=== PATIENT | female | born 1975 | race Caucasian/White ===

== ENCOUNTER 2020-09-04 17:52 | Observation (INO) ==
[2020-09-04 18:42] LABS: Basophils % 0.6 % (0.0-0.8); Eosinophils % 0.4 % (0.00-10.9); Hemoglobin 11.8 GM/DL (12.0-16.0); Immature Granulocytes % 0.6 %; Immature Granulocytes Absolute 0.03 #; Lymphocytes # 1.6 10*3/uL (1.4-4.0); Mean Corpuscular HGB Conc 33.7 GM/DL (32-36); Mean Corpuscular Volume 93.3 FL (87-102); Mean Platelet Volume 9.2 FL (9.6-12.0); Monocytes % 12.4 % (1.7-12.7); Platelet Count 215 T/CUMM (130-400); Red Blood Count 3.75 MC/CUMM (3.8-5.5); Red Cell Distribution Width 12.5 % (9.3-17.3); White Blood Count 4.8 T/CUMM (4-12)
[2020-09-04] MEDS ORDERED: ALUM/MAG/SIMETH/LIDO VISC 1:1 30 ML BOTTLE PO STA (18:48)
[2020-09-04] MEDS ORDERED: NITROGLYCERIN 2% OINT 1 INCH/GM PACK TOP STA (18:48)
[2020-09-04] MEDS ORDERED: ONDANSETRON 4 MG/2 ML VIAL IV STA (18:48)
[2020-09-04] MEDS ORDERED: ASPIRIN 325 MG TABLET PO STA (18:48)
[2020-09-04 19:04] LABS: Alanine Aminotransferase 37 U/L (13-56); Albumin 3.7 G/DL (3.4-5.0); Alkaline Phosphatase 93 U/L (45-117); Aspartate Amino Transferase 23 U/L (0-37); Bilirubin,Total < 0.39 MG/DL (0.2-1.0); Blood Urea Nitrogen 16 MG/DL (7-18); Calcium 9.5 MG/DL (8.5-10.1); Estimated Glom Filtration Rate 86 ML/MIN; Glucose 93 MG/DL (74-106); Osmolality,Calculated 273.8 MOS/KG (273-304); Total Protein 7.9 G/DL (6.4-8.3)
[2020-09-04] MEDS ORDERED: ENOXAPARIN 100 MG/ML SYRINGE SUBCUT STA (20:35)
[2020-09-04 20:41] LABS: Bilirubin,Urine Negative (Negative); Blood, Urine Negative (Negative); Glucose,Urine (UA) Negative (Negative); Ketones,Urine Negative (Negative); Mucus,Urine Occasional /LPF (Occasional); Nitrite,Urine Negative (Negative); Protein,Urine Negative; RBC,Urine 1 /HPF (0-4); Squamous Epithelial Cell,Urine Occasional /HPF (0-10); Urine Appearance CLEAR (Clear); Urine Color Straw (Yellow); Urine Specific Gravity 1.009 (1.001-1.035); Urine Urobilinogen < 2.0 EU/DL (0.2-1.0); WBC,Urine 1 /HPF (0-6)
[2020-09-04] MEDS ORDERED: GLUCAGON 1 MG VIAL IM PRN (21:04)
[2020-09-04] MEDS ORDERED: DEXTROSE 50% 25 GM/50 ML VIAL IV PRN (21:04)
[2020-09-04] MEDS ORDERED: ONDANSETRON 4 MG/2 ML VIAL IV PRN (21:04)
[2020-09-04] MEDS ORDERED: DEXTROSE 50% 25 GM/50 ML SYRINGE IV PRN (21:09)
[2020-09-04 22:04] VITALS: BP 114/83
[2020-09-04] MEDS ORDERED: ALPRAZolam 0.25 MG TABLET PO PRN (23:17)
[2020-09-05] MEDS: ACETAMINOPHEN 325 MG TABLET PO PRN ×2 (00:15→06:22)
[2020-09-05 02:27] LABS: Basophils % 0.7 % (0.0-0.8); Eosinophils % 0.2 % (0.00-10.9); Hematocrit 34.9 VOL% (35.7-47.0); Hemoglobin 11.7 GM/DL (12.0-16.0); Immature Granulocytes % 0.2 %; Immature Granulocytes Absolute 0.01 #; Lymphocytes # 0.9 10*3/uL (1.4-4.0); Lymphocytes % 16.4 % (21.3-54.2); Mean Corpuscular HGB Conc 33.5 GM/DL (32-36); Mean Corpuscular Volume 94.1 FL (87-102); Mean Platelet Volume 9.2 FL (9.6-12.0); Neutrophils % 72.5 % (38.7-73.9); Platelet Count 197 T/CUMM (130-400); Red Blood Count 3.71 MC/CUMM (3.8-5.5); Red Cell Distribution Width 12.5 % (9.3-17.3); White Blood Count 5.7 T/CUMM (4-12)
[2020-09-05 03:01] LABS: Albumin 3.8 G/DL (3.4-5.0); Bilirubin,Total 0.4 MG/DL (0.2-1.0); Calcium 9.5 MG/DL (8.5-10.1); Total Protein 7.6 G/DL (6.4-8.3)
[2020-09-05 03:05] LABS: Risk Ratio 3.76
[2020-09-05 03:09] LABS: Ferritin 43.6 ng/ml (8-252)
[2020-09-05 07:22] LABS: Barbiturates Screen,Urine Negative (Negative); Benzodiazepines Screen,Urine Negative (Negative); Cannabinoid Screen,Urine Negative (Negative); Opiate Screen,Urine Negative (Negative); Phencyclidine Screen,Urine Negative (Negative)
[2020-09-05] MEDS ORDERED: ZINC SULFATE 220 MG CAPSULE PO SCH (09:00)
[2020-09-05] MEDS ORDERED: ASPIRIN EC 325 MG TABLET PO SCH (09:00)
[2020-09-05] MEDS ORDERED: CHOLECALCIFEROL 1,000 UNIT TABLET PO SCH (09:00)
[2020-09-05] MEDS ORDERED: ASCORBIC ACID 500 MG TABLET PO SCH (09:00)
[2020-09-05] MEDS ORDERED: PANTOPRAZOLE 40 MG TABLET PO SCH (09:00)
[2020-09-05] MEDS ORDERED: OXYBUTYNIN XL 15 MG TABLET PO SCH (09:00)
== END 2020-09-05 12:58 | disposition home or self-care (01) ==
LOC: N.ED 17:52 → N.EDINP 17:52 → N.CC 22:54
PROVIDERS: ADMIT Internal Medicine; ATTEND Internal Medicine

== ENCOUNTER 2022-06-25 12:44 | Inpatient (IN) ==
[2022-06-25 13:05] LABS: Basophils % 0.4 % (0.0-0.8); Eosinophils % 0.3 % (0.00-10.9); Hematocrit 36.6 VOL% (35.7-47.0); Immature Granulocytes % 0.3 %; Immature Granulocytes Absolute 0.02 #; Lymphocytes # 1.5 10*3/uL (1.4-4.0); Lymphocytes % 21.5 % (21.3-54.2); Mean Corpuscular HGB Conc 32.8 GM/DL (32-36); Mean Corpuscular Volume 94.1 FL (87-102); Monocytes # 0.4 10*3/uL (0.11-0.8); Monocytes % 5.2 % (1.7-12.7); Neutrophils % 72.3 % (38.7-73.9); Platelet Count 238 T/CUMM (130-400); Red Blood Count 3.89 MC/CUMM (3.8-5.5); Red Cell Distribution Width 13.9 % (9.3-17.3)
[2022-06-25 13:33] LABS: Albumin 3.2 G/DL (3.4-5.0); Bilirubin,Total 0.6 MG/DL (0.20-1.00); Calcium 9.5 MG/DL (8.5-10.1); Osmolality,Calculated 279.5 MOS/KG (273-304); Potassium 4.2 MMOL/L (3.5-5.1); Total Protein 6.9 G/DL (6.4-8.2)
[2022-06-25] MEDS ORDERED: ONDANSETRON 4 MG/2 ML VIAL IV STA (15:12)
[2022-06-25] MEDS ORDERED: ONDANSETRON 4 MG/2 ML VIAL ONE (15:13)
[2022-06-25] MEDS ORDERED: PROMETHAZINE 25 MG/1 ML VIAL IM STA (19:23)
[2022-06-25] MEDS ORDERED: PROMETHAZINE 25 MG/1 ML VIAL IM PRN (19:24)
[2022-06-25] MEDS ORDERED: ONDANSETRON 4 MG/2 ML VIAL IV PRN (19:24)
[2022-06-25] MEDS ORDERED: HYDROmorphone 1 MG/1 ML SYRINGE IV STA (19:24)
[2022-06-25] MEDS ORDERED: oxyCODONE/ACETAMINOPHEN 5-325 MG TABLET PO PRN (19:24)
[2022-06-25] MEDS: DEXTROSE 5% NACL 0.45% 1,000 ML IV SCH (19:57)
[2022-06-25] MEDS: ACETAMINOPHEN 325 MG TABLET PO PRN (20:56)
[2022-06-26] MEDS: DEXTROSE 5% NACL 0.45% 1,000 ML IV SCH ×2 (03:44→12:45)
[2022-06-26] MEDS: PANTOPRAZOLE 40 MG TABLET PO SCH (08:21)
[2022-06-26] MEDS: ACETAMINOPHEN 325 MG TABLET PO PRN (08:21)
[2022-06-26] MEDS ORDERED: KETOROLAC 15 MG/1 ML VIAL IV PRN (12:16)
[2022-06-26] MEDS ORDERED: HYDROmorphone 1 MG/1 ML SYRINGE IV PRN (12:16)
[2022-06-26] MEDS ORDERED: INDOCYANINE GREEN 25 MG VIAL IV ONE (12:17)
[2022-06-26] MEDS: PIPERACILLIN/TAZOBACTAM 3,375 MG in SODIUM CHLORIDE 0.9% 100 ML IV SCH ×2 (14:51→20:40)
[2022-06-26] MEDS ORDERED: ZALEPLON 5 MG CAPSULE PO PRN (20:45)
[2022-06-27] MEDS: PIPERACILLIN/TAZOBACTAM 3,375 MG in SODIUM CHLORIDE 0.9% 100 ML IV SCH ×2 (04:30→12:41)
[2022-06-27] MEDS: DEXTROSE 5% NACL 0.45% 1,000 ML IV SCH ×3 (05:01→12:41)
[2022-06-27] MEDS ORDERED: INDOCYANINE GREEN 25 MG VIAL IV ONE ×2 (06:00→06:30)
[2022-06-27] MEDS: PANTOPRAZOLE 40 MG TABLET PO SCH (08:51)
[2022-06-27] MEDS ORDERED: CETIRIZINE 10 MG TABLET PO SCH (09:00)
[2022-06-27] MEDS ORDERED: TISSUE ADHESIVE 1 EACH APPLICATOR TOP ONE (09:02)
[2022-06-27] MEDS ORDERED: ROCURONIUM 50 MG/5 ML VIAL IV ONE (09:13)
[2022-06-27] MEDS ORDERED: ONDANSETRON 4 MG/2 ML VIAL ONE (09:13)
[2022-06-27] MEDS ORDERED: propofoL 200 MG/20 ML VIAL IV ONE (09:13)
[2022-06-27] MEDS ORDERED: LIDOCAINE 2% 5 ML VIAL ONE (09:13)
[2022-06-27] MEDS ORDERED: fentaNYL 100 MCG/2 ML VIAL ONE (09:14)
[2022-06-27] MEDS ORDERED: MIDAZOLAM 2 MG/2 ML VIAL ONE (09:14)
[2022-06-27] MEDS ORDERED: FAMOTIDINE 20 MG/2 ML VIAL IV ONE (09:22)
[2022-06-27] MEDS ORDERED: PHENYLEPHRINE 1 MG/10 ML SYRINGE IV ONE (10:01)
[2022-06-27] MEDS ORDERED: GLYCOPYRROLATE 0.4 MG/2 ML VIAL ONE ×2 (10:01→10:41)
[2022-06-27] MEDS ORDERED: SEVOFLURANE 1 UNIT/15 MINUTE INH ONE (10:01)
[2022-06-27] MEDS ORDERED: NEOSTIGMINE 10 MG/10 ML VIAL ONE (10:41)
[2022-06-27] MEDS: HYDROmorphone 1 MG/1 ML SYRINGE IV PRN ×2 (11:16→11:34)
[2022-06-27 12:05] VITALS: BP 120/77
[2022-06-27] MEDS ORDERED: KETOROLAC 30 MG/1 ML VIAL IM ONE (13:50)
== END 2022-06-27 14:30 | disposition home or self-care (01) | DRG 419 ==
LOC: N.ED 12:44 → N.EDINP 19:30 → N.3E 21:14
PROVIDERS: ADMIT Student in an Organized Health Care Education/Training Program; ATTEND Student in an Organized Health Care Education/Training Program